=== PATIENT | female | born 1985 | race Caucasian/White ===

== ENCOUNTER 2017-09-26 03:00 | Emergency (ER) | payer OTHER ==
[~2017-09-26] VITALS: Ht 170.2 cm; Wt 135.2 kg
[~2017-09-26 03:00] MED LIST: AZITHROMYCIN 2250 MG PO; DEPO-PROVE150 MG/11 IM; FLAGYL500 MG PO; HYDROCODON-ACE1 EAC5; HYDROCODONE-AP1 EAC6 PO; IBUPROFEN 800800 M1 PO; LAMICTAL ODT100 MG PO; LEVAQUIN 500 M500 M2 PO; LEVOTHYROXIN0.025 MG PO; MACROBID 100 M100 M1 PO; NAPROSYN500 MG PO; NORCO 5-325 TA1 EAC1 PO; NORCO 5-325 TA1 EACH PO; PRINIVIL20 MG PO; TIZANIDINE HCL 22 MG; XANAX 0.5 MG0.5 MG PO; ZOFRAN ODT4 MG PO
[2017-09-26 03:28] LABS: URINE BLOOD NEGATIVE (Negative); URINE CLARITY CLEAR; URINE COLOR YELLOW; URINE GLUCOSE-RANDOM NEGATIVE (Negative); URINE KETONES TRACE (Negative); URINE LEUKOCYTES-REFLEX NEGATIVE (Negative); URINE NITRITE-REFLEX NEGATIVE (Negative); URINE PROTEIN 1+ (Negative); URINE SPECIFIC GRAVITY >= 1.030 (1.005-1.030); URINE UROBILINOGEN 0.2 E.U./dl (0.2-1.0)
[2017-09-26 03:30] LABS: URINE BILIRUBIN 1+ (Negative)
[2017-09-26 03:31] LABS: HEMATOCRIT 40.5 % (37.0-47.0); HEMOGLOBIN 13.5 gm/dL (12.0-15.0); MCH 27.9 pg (26.0-34.0); MCHC 33.4 g/dL (28.0-37.0); MCV 83.5 fL (80.0-100.0); NUCLEATED RBCS 0 /100WBC; PLATELET COUNT* 265 thou/uL (150-400); RBC 4.85 mil/uL (4.20-5.00); RDW-CV 14.5 % (10.5-14.5); WBC 12.2 thou/uL (4.0-11.0)
[2017-09-26 03:32] LABS: ICTOTEST (BILI CONFIRMATORY) Negative (Negative)
[2017-09-26 03:42] LABS: CALCIUM 8.5 mg/dL (8.5-10.1); CREATININE 0.8 mg/dL (0.6-1.3); POTASSIUM 3.4 mmol/L (3.5-5.1)
[2017-09-26 03:46] LABS: TOTAL BILIRUBIN 0.9 mg/dL (<0.1-1.0); TOTAL PROTEIN 6.7 g/dL (6.4-8.2)
[2017-09-26 04:10] LABS: ABSOLUTE EOSINOPHILS 0.2 thou/uL (0.0-0.7); ABSOLUTE LYMPHOCYTES 0.9 thou/uL (0.8-5.3); ABSOLUTE MONOCYTES 0.6 thou/uL (0.0-1.2); ABSOLUTE NEUTROPHILS 10.5 thou/uL (1.6-8.1); PLATELET ESTIMATE ADEQUATE
[2017-09-26 04:11] LABS: TOXIC GRANULATION 2+
[2017-09-26] MEDS ORDERED: ZOFRAN 4 MG ORAL4 MG PO (06:08)
[2017-09-26] MEDS ORDERED: NORCO 5-325 TA1 EACH PO (06:08)
[2017-09-26] MEDS ORDERED: CARAFATE 1 GM TA1 G1 PO (06:08)
[2017-09-26 06:13] VITALS: BP 108/55
== END 2017-09-26 06:14 | disposition home or self-care (01) ==
LOC: M.ERS 03:00
PROVIDERS: Emergency Medicine Emergency Medical Services
DX: R10.13 Epigastric pain (principal); R19.7 Diarrhea, unspecified; G43.909 Migraine, unspecified, not intractable, without status migrainosus; F17.210 Nicotine dependence, cigarettes, uncomplicated; Z88.6 Allergy status to analgesic agent; Z90.49 Acquired absence of other specified parts of digestive tract

== ENCOUNTER 2018-02-03 01:48 | Emergency (ER) | payer OTHER, MEDICAID ==
[~2018-02-03] VITALS: Ht 162.6 cm; Wt 81.7 kg
[~2018-02-03 01:48] MED LIST changes: +CARAFATE 1 GM TA1 G1 PO; +ZOFRAN 4 MG ORAL4 MG PO
[2018-02-03] MEDS ORDERED: UNICOMPLEX M TA1 TA1 (02:03)
[2018-02-03] MEDS ORDERED: TUMS (02:03)
[2018-02-03 02:31] LABS: URINE CLARITY TURBID; URINE COLOR RED
[2018-02-03 02:34] LABS: ICTOTEST (BILI CONFIRMATORY) Negative (Negative); URINE BILIRUBIN 1+ (Negative); URINE BLOOD 3+ (Negative); URINE GLUCOSE-RANDOM NEGATIVE (Negative); URINE KETONES NEGATIVE (Negative); URINE LEUKOCYTES-REFLEX NEGATIVE (Negative); URINE NITRITE-REFLEX NEGATIVE (Negative); URINE PROTEIN 2+ (Negative); URINE SPECIFIC GRAVITY >= 1.030 (1.005-1.030); URINE UROBILINOGEN 0.2 E.U./dl (0.2-1.0)
[2018-02-03 02:35] LABS: BACTERIA-REFLEX 1-9 Few /HPF (None Seen); CRYSTALS None Seen /LPF (None Seen); FINE GRANULAR CASTS 0-3 Few /LPF (None Seen); HYALINE CASTS 0-3 Few /LPF (None Seen); MUCUS 0-3 Light strn/LPF (None Seen); SQUAMOUS 0-3 Few /LPF (0-3); URINE RBC >20 Many /HPF (0-2); URINE WBC-REFLEX 6-15 Few /HPF (0-5)
[2018-02-03] MEDS ORDERED: BACTRIM DS TAB1 EACH PO (03:21)
[2018-02-03] MEDS ORDERED: NORCO 7.5-3251 EACH PO (03:21)
[2018-02-03] MEDS ORDERED: ZOFRAN ODT4 MG PO (03:21)
[2018-02-03 04:37] VITALS: BP 97/52
== END 2018-02-03 04:39 | disposition home or self-care (01) ==
LOC: M.ERS 01:48
PROVIDERS: Emergency Medicine
DX: N20.0 Calculus of kidney (principal); G43.909 Migraine, unspecified, not intractable, without status migrainosus; F17.210 Nicotine dependence, cigarettes, uncomplicated; Z88.5 Allergy status to narcotic agent; Z88.6 Allergy status to analgesic agent; Z90.49 Acquired absence of other specified parts of digestive tract; Z98.890 Other specified postprocedural states

== ENCOUNTER 2018-02-05 09:54 | Emergency (ER) | payer OTHER, MEDICAID ==
[~2018-02-05] VITALS: Ht 170.2 cm; Wt 100.7 kg
[~2018-02-05 09:54] MED LIST changes: +BACTRIM DS TAB1 EACH PO; +NORCO 7.5-3251 EACH PO; +TUMS; +UNICOMPLEX M TA1 TA1
[2018-02-05 10:17] LABS: URINE BLOOD 3+ (Negative); URINE CLARITY CLEAR; URINE COLOR YELLOW; URINE GLUCOSE-RANDOM NEGATIVE (Negative); URINE KETONES NEGATIVE (Negative); URINE LEUKOCYTES-REFLEX TRACE (Negative); URINE NITRITE-REFLEX NEGATIVE (Negative); URINE PROTEIN 1+ (Negative); URINE SPECIFIC GRAVITY >= 1.030 (1.005-1.030)
[2018-02-05 10:18] LABS: ICTOTEST (BILI CONFIRMATORY) Negative (Negative); URINE BILIRUBIN 1+ (Negative)
[2018-02-05 10:37] LABS: ABSOLUTE BASOPHILS 0.1 thou/uL (0.0-0.2); ABSOLUTE EOSINOPHILS 0.3 thou/uL (0.0-0.7); ABSOLUTE LYMPHOCYTES 1.5 thou/uL (0.8-5.3); ABSOLUTE MONOCYTES 0.5 thou/uL (0.0-1.2); ABSOLUTE NEUTROPHILS 4.6 thou/uL (1.6-8.1); BASOPHILS 0.8 %; EOSINOPHILS 4.3 %; HEMATOCRIT 41.6 % (37.0-47.0); HEMOGLOBIN 13.5 gm/dL (12.0-15.0); LYMPHOCYTES 21.4 %; MCH 27.9 pg (26.0-34.0); MCHC 32.5 g/dL (28.0-37.0); MCV 85.8 fL (80.0-100.0); MONOCYTES 7.5 %; MPV 10.9 fl. (7.2-11.1); NUCLEATED RBCS 0 /100WBC; PLATELET COUNT* 239 thou/uL (150-400); RBC 4.85 mil/uL (4.20-5.00); RDW-CV 15.5 % (10.5-14.5); WBC 6.9 thou/uL (4.0-11.0)
[2018-02-05 10:41] LABS: BACTERIA-REFLEX 1-9 Few /HPF (None Seen); CASTS None Seen /LPF (None Seen); CRYSTALS None Seen /LPF (None Seen); MUCUS 4-6 Moderate strn/LPF (None Seen); SQUAMOUS 4-10 Moderate /LPF (0-3); URINE WBC-REFLEX 0-5 Rare /HPF (0-5)
[2018-02-05 10:46] LABS: CALCIUM 8.6 mg/dL (8.5-10.1); CREATININE 0.7 mg/dL (0.6-1.3); POTASSIUM 3.8 mmol/L (3.5-5.1)
[2018-02-05 10:50] LABS: TOTAL BILIRUBIN 0.3 mg/dL (<0.1-1.0); TOTAL PROTEIN 6.1 g/dL (6.4-8.2)
[2018-02-05] MEDS ORDERED: ROBAXIN500 MG PO (11:41)
[2018-02-05] MEDS ORDERED: FLOMAX0.4 MG PO (11:42)
[2018-02-05 11:55] VITALS: BP 92/57
== END 2018-02-05 11:58 | disposition home or self-care (01) ==
LOC: M.ERS 09:54
PROVIDERS: Nurse Practitioner Family
DX: N20.0 Calculus of kidney (principal); G43.909 Migraine, unspecified, not intractable, without status migrainosus; Z90.49 Acquired absence of other specified parts of digestive tract; Z98.890 Other specified postprocedural states; F17.210 Nicotine dependence, cigarettes, uncomplicated; Z88.5 Allergy status to narcotic agent; Z88.8 Allergy status to other drugs, medicaments and biological substances

== ENCOUNTER 2019-01-30 12:25 | Emergency (ER) | payer OTHER, MEDICAID ==
[~2019-01-30] VITALS: Ht 170.1 cm; Wt 71.2 kg
[~2019-01-30 12:25] MED LIST changes: +FLOMAX0.4 MG PO; +ROBAXIN500 MG PO
[2019-01-30 12:44] LABS: URINE BILIRUBIN NEGATIVE (Negative); URINE BLOOD NEGATIVE (Negative); URINE CLARITY CLEAR; URINE COLOR YELLOW; URINE GLUCOSE-RANDOM NEGATIVE (Negative); URINE KETONES NEGATIVE (Negative); URINE LEUKOCYTES-REFLEX NEGATIVE (Negative); URINE NITRITE-REFLEX NEGATIVE (Negative); URINE PROTEIN NEGATIVE (Negative); URINE UROBILINOGEN 0.2 E.U./dl (0.2-1.0)
[2019-01-30 13:00] LABS: ABSOLUTE BASOPHILS 0.1 thou/uL (0.0-0.2); ABSOLUTE EOSINOPHILS 0.1 thou/uL (0.0-0.7); ABSOLUTE LYMPHOCYTES 1.8 thou/uL (0.8-5.3); ABSOLUTE MONOCYTES 0.5 thou/uL (0.0-1.2); ABSOLUTE NEUTROPHILS 5.5 thou/uL (1.6-8.1); BASOPHILS 0.6 %; EOSINOPHILS 1.7 %; HEMATOCRIT 38.7 % (37.0-47.0); HEMOGLOBIN 12.7 gm/dL (12.0-15.0); LYMPHOCYTES 22.5 %; MCH 27.7 pg (26.0-34.0); MCHC 32.8 g/dL (28.0-37.0); MCV 84.4 fL (80.0-100.0); MONOCYTES 6.7 %; MPV 9.7 fl. (7.2-11.1); NUCLEATED RBCS 0 /100WBC; PLATELET COUNT* 270 thou/uL (150-400); POLYS 68.5 %; RBC 4.59 mil/uL (4.20-5.00); RDW-CV 12.8 % (10.5-14.5)
[2019-01-30 13:48] LABS: CALCIUM 8.5 mg/dL (8.5-10.1); CREATININE 0.6 mg/dL (0.6-1.3); POTASSIUM 3.8 mmol/L (3.5-5.1)
[2019-01-30 13:53] LABS: ALBUMIN 3.2 g/dL (3.4-5.0); TOTAL BILIRUBIN 0.3 mg/dL (<0.1-1.0); TOTAL PROTEIN 6.4 g/dL (6.4-8.2)
[2019-01-30] MEDS ORDERED: BENTYL 20 MG TA20 M1 PO (14:07)
[2019-01-30] MEDS ORDERED: ZOFRAN ODT4 MG DISSOLVE (14:07)
[2019-01-30 14:18] VITALS: BP 112/72
== END 2019-01-30 14:19 | disposition home or self-care (01) ==
LOC: M.ERS 12:25
PROVIDERS: Emergency Medicine Emergency Medical Services
DX: K52.9 Noninfective gastroenteritis and colitis, unspecified (principal); G43.909 Migraine, unspecified, not intractable, without status migrainosus; F17.210 Nicotine dependence, cigarettes, uncomplicated; Z88.5 Allergy status to narcotic agent; Z88.6 Allergy status to analgesic agent; Z90.49 Acquired absence of other specified parts of digestive tract; Z98.890 Other specified postprocedural states

== ENCOUNTER 2019-03-06 21:16 | Emergency (ER) | payer OTHER, MEDICAID ==
[~2019-03-06] VITALS: Ht 167.6 cm; Wt 71.7 kg
[~2019-03-06 21:16] MED LIST changes: +BENTYL 20 MG TA20 M1 PO; +ZOFRAN ODT4 MG DISSOLVE
[2019-03-06] MEDS ORDERED: HAIR SKIN NAIL1 EACH PO (21:29)
[2019-03-06] MEDS ORDERED: LEXAPRO 10 MG T10 M2 PO (21:30)
[2019-03-06] MEDS ORDERED: XANAX 0.25 MG0.25 MG PO (21:30)
[2019-03-06 22:23] LABS: ABSOLUTE BASOPHILS 0.1 thou/uL (0.0-0.2); ABSOLUTE EOSINOPHILS 0.3 thou/uL (0.0-0.7); ABSOLUTE LYMPHOCYTES 2.2 thou/uL (0.8-5.3); ABSOLUTE MONOCYTES 0.7 thou/uL (0.0-1.2); ABSOLUTE NEUTROPHILS 5.7 thou/uL (1.6-8.1); HEMATOCRIT 31.7 % (37.0-47.0); HEMOGLOBIN 10.5 gm/dL (12.0-15.0); LYMPHOCYTES 24.6 %; MCHC 33.3 g/dL (28.0-37.0); MPV 9.3 fl. (7.2-11.1); NUCLEATED RBCS 0 /100WBC; PLATELET COUNT* 248 thou/uL (150-400); POLYS 63.4 %; RBC 3.91 mil/uL (4.20-5.00); RDW-CV 13.2 % (10.5-14.5)
[2019-03-06 22:24] LABS: URINE BILIRUBIN NEGATIVE (Negative); URINE BLOOD 3+ (Negative); URINE CLARITY CLEAR; URINE COLOR YELLOW; URINE GLUCOSE-RANDOM NEGATIVE (Negative); URINE KETONES NEGATIVE (Negative); URINE LEUKOCYTES-REFLEX NEGATIVE (Negative); URINE NITRITE-REFLEX NEGATIVE (Negative); URINE PROTEIN NEGATIVE (Negative); URINE SPECIFIC GRAVITY 1.025 (1.005-1.030); URINE UROBILINOGEN 0.2 E.U./dl (0.2-1.0)
[2019-03-06 22:28] LABS: CALCIUM 7.9 mg/dL (8.5-10.1); CREATININE 0.7 mg/dL (0.6-1.3); POTASSIUM 3.6 mmol/L (3.5-5.1)
[2019-03-06 22:32] LABS: ALBUMIN 2.8 g/dL (3.4-5.0); TOTAL BILIRUBIN 0.1 mg/dL (<0.1-1.0); TOTAL PROTEIN 5.7 g/dL (6.4-8.2)
[2019-03-06 22:34] LABS: CASTS None Seen /LPF (None Seen); CRYSTALS None Seen /LPF (None Seen); MUCUS >6 Heavy strn/LPF (None Seen); SQUAMOUS 0-3 Few /LPF (0-3); URINE WBC-REFLEX None Seen /HPF (0-5)
[2019-03-07] MEDS ORDERED: ZOFRAN ODT4 MG DISSOLVE (00:03)
[2019-03-07] MEDS ORDERED: TRAMADOL 50 MG50 MG PO (00:03)
[2019-03-07 00:14] VITALS: BP 105/66
--- NOTE | 2019-03-08 08:40 | EKG ---
[place] [address] ELECTROCARDIOGRAM REPORT Name: ROSEY SANDERS Room: [facility]#: [id number] Admission: 03/06/19 Attend Phys: Discharge: 03/07/19 Date of : 83 Report #: [id number] THIS REPORT FOR: //name// [facility] ED Test Date: 2019-03-06 Test Time: 22:19:58 Pat Name: ROSEY SANDERS Department: Room: Gender: F [employer] Candy Maker: ANUEL : 1985 Requested By: Poncho Simmons Order Number: [id number] MD: Murali Dewitt Measurements Intervals [place] Rate: 64 P: 33 LA: 161 QRS: 32 QRSD: 84 T: 27 QT: 427 QTc: 441 Interpretive Statements Sinus rhythm Low voltage, precordial leads Compared to ECG 05/31/2014 22:05:41 Low QRS voltage now present Sinus tachycardia no longer present Electronically Signed On 03-08-2019 8:40:13 FOOT SETTER by Murali Dewitt [email or web address] <ELECTRONICALLY SIGNED> By: Murali Dewitt MD, [facility] 03/08/19 0840 18 18 Murali Dewitt MD, FACC /EPI
== END 2019-03-07 00:14 | disposition home or self-care (01) ==
LOC: M.ERS 21:16
PROVIDERS: Emergency Medicine Emergency Medical Services
DX: R10.10 Upper abdominal pain, unspecified (principal); R19.7 Diarrhea, unspecified; G43.909 Migraine, unspecified, not intractable, without status migrainosus; F17.210 Nicotine dependence, cigarettes, uncomplicated; Z88.8 Allergy status to other drugs, medicaments and biological substances; Z90.49 Acquired absence of other specified parts of digestive tract

== ENCOUNTER 2019-06-21 21:05 | Emergency (ER) | payer OTHER, MEDICAID ==
[~2019-06-21] VITALS: Ht 170.2 cm; Wt 70.3 kg
[~2019-06-21 21:05] MED LIST changes: +HAIR SKIN NAIL1 EACH PO; +LEXAPRO 10 MG T10 M2 PO; +TRAMADOL 50 MG50 MG PO; +XANAX 0.25 MG0.25 MG PO
[2019-06-21 21:26] LABS: URINE BILIRUBIN NEGATIVE (Negative); URINE BLOOD NEGATIVE (Negative); URINE CLARITY CLEAR; URINE COLOR YELLOW; URINE GLUCOSE-RANDOM NEGATIVE (Negative); URINE KETONES NEGATIVE (Negative); URINE LEUKOCYTES-REFLEX NEGATIVE (Negative); URINE NITRITE-REFLEX NEGATIVE (Negative); URINE PROTEIN NEGATIVE (Negative); URINE SPECIFIC GRAVITY 1.025 (1.005-1.030); URINE UROBILINOGEN 0.2 E.U./dl (0.2-1.0)
[2019-06-22] MEDS ORDERED: HYDROCODON-ACE1 EAC8 PO (00:11)
[2019-06-22 00:18] VITALS: BP 106/52
== END 2019-06-22 00:19 | disposition home or self-care (01) ==
LOC: M.ERS 21:05
PROVIDERS: Nurse Practitioner Family
DX: N83.202 Unspecified ovarian cyst, left side (principal); F17.210 Nicotine dependence, cigarettes, uncomplicated; Z88.5 Allergy status to narcotic agent; Z88.8 Allergy status to other drugs, medicaments and biological substances; Z90.49 Acquired absence of other specified parts of digestive tract; Z98.890 Other specified postprocedural states; Z87.442 Personal history of urinary calculi

== ENCOUNTER 2020-03-04 19:15 | Emergency (ER) | payer OTHER ==
[~2020-03-04] VITALS: Ht 167.6 cm; Wt 72.6 kg
[~2020-03-04 19:15] MED LIST changes: +HYDROCODON-ACE1 EAC8 PO
[2020-03-04] MEDS ORDERED: BACTRIM DS TAB1 EAC1 PO ×2 (19:36→19:37)
[2020-03-04] MEDS ORDERED: APAP W/CODEINE1 TA2 PO ×2 (19:36→19:37)
[2020-03-04 20:30] VITALS: BP 147/99
== END 2020-03-04 20:31 | disposition home or self-care (01) ==
LOC: M.ERS 19:15
DX: L02.31 Cutaneous abscess of buttock (principal); K31.84 Gastroparesis; F17.210 Nicotine dependence, cigarettes, uncomplicated; Z90.49 Acquired absence of other specified parts of digestive tract; Z98.890 Other specified postprocedural states; Z88.5 Allergy status to narcotic agent; Z88.8 Allergy status to other drugs, medicaments and biological substances

== ENCOUNTER 2020-04-23 19:10 | Inpatient (IN) | payer OTHER, MEDICAID ==
[~2020-04-23] VITALS: Ht 170.2 cm; Wt 79.8 kg
--- NOTE | ~2020-04-23 | PROC ---
[address] [address] PROCEDURE REPORT Name: ROSEY SANDERS Room: [address] [place] M.R.#: [id number] Admission: 04/23/20 Attend Phys: David Tena MD Discharge: 04/28/20 Date of : 83 Report #: [id number] THIS REPORT FOR: cc: Ariane Jaimes MD, Elizabeth MD ~ [facility],Medical Records Staff For GI report, please see the Provation report in Perceptive 7 content. By: [id number] Records Staff [facility] /[place]
[~2020-04-23 19:10] MED LIST changes: +APAP W/CODEINE1 TA2 PO; +BACTRIM DS TAB1 EAC1 PO
[2020-04-23 19:22] VITALS: BP 131/75
[2020-04-23] MEDS ORDERED: VENLAFAXINE HC100 MG PO (19:25)
[2020-04-23 19:35] LABS: URINE BILIRUBIN NEGATIVE (Negative); URINE BLOOD NEGATIVE (Negative); URINE CLARITY CLEAR; URINE COLOR YELLOW; URINE GLUCOSE-RANDOM NEGATIVE (Negative); URINE KETONES NEGATIVE (Negative); URINE LEUKOCYTES-REFLEX NEGATIVE (Negative); URINE NITRITE-REFLEX NEGATIVE (Negative); URINE PROTEIN NEGATIVE (Negative); URINE SPECIFIC GRAVITY >= 1.030 (1.005-1.030); URINE UROBILINOGEN 0.2 E.U./dl (0.2-1.0)
[2020-04-23 19:40] LABS: ABSOLUTE LYMPHOCYTES 2.1 thou/uL (0.8-5.3); ABSOLUTE MONOCYTES 0.6 thou/uL (0.0-1.2); ABSOLUTE NEUTROPHILS 5.2 thou/uL (1.6-8.1); BASOPHILS 0.6 %; LYMPHOCYTES 26.6 %; MCH 23.7 pg (26.0-34.0); MCHC 31.3 g/dL (28.0-37.0); MCV 75.9 fL (80.0-100.0); MONOCYTES 7.3 %; MPV 9.1 fl. (7.2-11.1); NUCLEATED RBCS 0 /100WBC; PLATELET COUNT* 289 thou/uL (150-400); POLYS 65.5 %; RBC 4.62 mil/uL (4.20-5.00); RDW-CV 15.5 % (10.5-14.5); WBC 7.9 thou/uL (4.0-11.0)
[2020-04-23 19:50] LABS: ANION GAP 7 mmol/L (7-16); BUN 12 mg/dL (7-18); CALCIUM 7.7 mg/dL (8.5-10.1); CHLORIDE 110 mmol/L (98-107); CO2 27 mmol/L (21-32); CREATININE 0.6 mg/dL (0.6-1.3); GLUCOSE 66 mg/dL (70-99); POTASSIUM 3.8 mmol/L (3.5-5.1); SODIUM 144 mmol/L (136-145)
[2020-04-23 19:54] LABS: ALBUMIN 3.3 g/dL (3.4-5.0); ALKALINE PHOSPHATASE 161 U/L (46-116); LIPASE 809 U/L (73-393); SGOT 24 U/L (15-37); SGPT 29 U/L (30-65); TOTAL PROTEIN 6.4 g/dL (6.4-8.2)
[2020-04-23 19:56] LABS: TOTAL BILIRUBIN < 0.1 mg/dL (<0.1-1.0)
[2020-04-23 22:13] VITALS: BP 120/70
[2020-04-23] MEDS ORDERED: SEROQUEL 100 M100 M1 PO (23:38)
[2020-04-24 08:00] VITALS: BP 127/74
--- NOTE | 2020-04-24 15:53 | NUR ---
PT.IN ISOLATION FOR POTENTIAL C.DIFF. RESULTS PENDING. ATTEMPTED TO CALL PT.IN ROOM. NO ANSWER. ATTEMPTED TO CALL PT.ON HER CELL NUMBER LISTED [phone]. NO VOICE MAIL SET UP . PHONE RANG AND RANG. WILL ATTEMPT IN AM.
[2020-04-24 16:38] VITALS: BP 117/78
--- NOTE | 2020-04-24 17:31 | NUR ---
PATIENT ALERT AND ORIENTED X 4. VITAL SIGNS STABLE ON ROOM AIR. UP INDEPENDENTLY IN ROOM. IV PATENT WITH FLUIDS INFUSING. PAIN AND NAUSEA BEING MANAGED WITH IV MEDICATION. HOURLY ROUNDS MAINTAINED TRHOUGHOUT THE SHIFT. CALL LIGHT WITHIN REACH. NURSING WILL CONTINUE TO MONITOR.
[2020-04-24 19:37] VITALS: BP 122/85
--- NOTE | 2020-04-25 04:22 | NUR ---
PT A&OX4, VSS ON [place] AIR, PT UP AD CIPRIANO, IV FLUIDS INFUSING ORDERED. AT [address] DR[address] SHINE CONTACTED D/T PT C/O NOT ABLE TO SLEEP AND NOT ABLE TO TAKE PO SEROQUEL, ORDER GIVEN FOR ATIVAN 0.5 MG IV ONETIME. PAIN AND ANTIEMETIC MEDS REQUESTED AND GIVEN ODERED. WILL CONTINUE TO MONITOR.
[2020-04-25 05:06] LABS: HEMATOCRIT 28.8 % (37.0-47.0); MCH 23.6 pg (26.0-34.0); MCHC 31.1 g/dL (28.0-37.0); MCV 75.7 fL (80.0-100.0); MPV 9.1 fl. (7.2-11.1); RBC 3.8 mil/uL (4.20-5.00); RDW-CV 16.2 % (10.5-14.5); WBC 4.4 thou/uL (4.0-11.0)
[2020-04-25 05:46] LABS: ALBUMIN 2.5 g/dL (3.4-5.0); CALCIUM 7.1 mg/dL (8.5-10.1); CREATININE 0.6 mg/dL (0.6-1.3); MAGNESIUM 1.6 mg/dL (1.8-2.4); POTASSIUM 3.8 mmol/L (3.5-5.1); TOTAL BILIRUBIN 0.2 mg/dL (<0.1-1.0); TOTAL PROTEIN 5.1 g/dL (6.4-8.2)
[2020-04-25 07:45] VITALS: BP 107/74
--- NOTE | 2020-04-25 10:30 | NUR ---
PT TAKEN VIA WHEELCHAIR FOR ERCP AND US. PT VERY ANXIOUS VERBAL ORDER OK TO GIVE PO XANAX PRIOR TO PROCEDURE FOR CLAUSTROPHOBIA. PT GIVEN ZOFRAN AND PAIN MED DUE TO INCREASED NAUSEA AND PAIN BEFORE PROCEDURE.
--- NOTE | 2020-04-25 15:00 | NUR ---
PT.ALERT AND ORIENTED. STATED SHE LIVES WITH HE BOYFRIEND AND CHILDREN. IS NORMALLY INDEPENDENT. IS UNEMPLOYED. SHE DOESN'T THINK SHE WILL HAVE ANY NEEDS AT DISCHARGE. HAD MRCP AND US OF ABD TODAY FOR ELEVATED LFTS.
[2020-04-25 16:00] VITALS: BP 118/82
[2020-04-25 20:27] VITALS: BP 103/65
[2020-04-26 02:07] LABS: HEPATITIS B SURFACE AG Negative (Negative)
[2020-04-26 04:40] VITALS: BP 108/67
--- NOTE | 2020-04-26 05:36 | NUR ---
PT HAD SOME ANXIETY ABOUT FALLING ASLEEP, GIVEN BENADRYL. RECEIVED DILAUDID Q2 AND SOFRAN Q4 WHEN REQUESTED. RECEIVED ALL FLUIDS AND MEDS SCHEDULED. TOLERATING CLEAR LIQUIDS WELL. UP AD CIPRIANO FOR RESTROOM. ALERT AND ORIENTED, ROOM AIR. MONITORING LABS THIS AM.
[2020-04-26 05:47] LABS: HEMATOCRIT 29.1 % (37.0-47.0); MCH 23.5 pg (26.0-34.0); MCHC 31.1 g/dL (28.0-37.0); MCV 75.7 fL (80.0-100.0); MPV 9.1 fl. (7.2-11.1); RBC 3.84 mil/uL (4.20-5.00); RDW-CV 15.8 % (10.5-14.5); WBC 4.1 thou/uL (4.0-11.0)
[2020-04-26 05:59] LABS: INR 1.1; PROTIME 11.8 Seconds (9.20-11.50)
[2020-04-26 06:01] LABS: ALBUMIN 2.5 g/dL (3.4-5.0); CALCIUM 7.2 mg/dL (8.5-10.1); CREATININE 0.6 mg/dL (0.6-1.3); POTASSIUM 3.4 mmol/L (3.5-5.1); TOTAL BILIRUBIN 0.1 mg/dL (<0.1-1.0)
[2020-04-26 06:29] LABS: % SATURATION 4 % (20-39)
[2020-04-26 06:30] LABS: IRON 13 ug/dL (50-175)
--- NOTE | 2020-04-26 12:00 | NUR ---
DISCUSSED IN PRIME TIME ROUNDING. PT.HAVING POOR PO TOLERANCE. ON FULL LIQUIDS PLAN EGD TOMORROW.
[2020-04-26 16:00] VITALS: BP 99/64
--- NOTE | 2020-04-26 17:56 | NUR ---
PT IS A+0X4. PT VOICES CONCERN ABOUT PAIN LEVEL AND CONTROLLING PAIN. PT ADVANCED TO FULL LIQUID DIET AND IS TOLERATING WITH COMPLAINTS OF NAUSEA WITH NO VOMITING. ZOFRAN GIVEN. PT UP AD CIPRIANO. PT IS NPO AFTER MIDNIGHT FOR EGD IN THE MORNING.
--- NOTE | 2020-04-26 18:53 | NUR ---
I HAVE REVIEWED AND AGREE WITH [facility].
[2020-04-26 20:46] VITALS: BP 121/83
--- NOTE | 2020-04-27 04:26 | NUR ---
PT IS UP AD CIPRIANO TO RESTROOM. SHE IS ON ROOM AIR, ALERT AND ORIENTED. SHE RECEIVED HYDROCODONE, DILAUDID, ZOFRAN EVERY 4 HOURS PRN FOR PAIN RATED 7/10 EACH TIME. TOLERATING FULL LIQUID DIET, STILL NO BM. NPO SINCE MIDNIGHT. PAIN STILL AN ISSUE, NO REPORTS OF VOMITING BUT HAS NAUSEA.
[2020-04-27 04:45] LABS: HEMATOCRIT 31.1 % (37.0-47.0); HEMOGLOBIN 9.8 gm/dL (12.0-15.0); MCH 23.8 pg (26.0-34.0); MCHC 31.6 g/dL (28.0-37.0); MCV 75.5 fL (80.0-100.0); MPV 9.4 fl. (7.2-11.1); RBC 4.12 mil/uL (4.20-5.00); RDW-CV 15.7 % (10.5-14.5); WBC 4.5 thou/uL (4.0-11.0)
[2020-04-27 05:01] LABS: ALBUMIN 2.6 g/dL (3.4-5.0); CALCIUM 8.3 mg/dL (8.5-10.1); CREATININE 0.7 mg/dL (0.6-1.3); MAGNESIUM 1.9 mg/dL (1.8-2.4); POTASSIUM 3.9 mmol/L (3.5-5.1); TOTAL BILIRUBIN 0.1 mg/dL (<0.1-1.0); TOTAL PROTEIN 5.4 g/dL (6.4-8.2)
[2020-04-27 08:00] VITALS: BP 111/67
[2020-04-27 09:57] VITALS: BP 121/83
--- NOTE | 2020-04-27 15:00 | NUR ---
HAD EGD TODAY. KEPT ON FULL LIQUIDS DUE TO NAUSEA WITH ANY PO INTAKE. POSSIBLE DISCHARGE TOMORROW IF ABLE TO ADVANCE DIET.
[2020-04-27 15:20] VITALS: BP 121/77
--- NOTE | 2020-04-27 18:13 | NUR ---
PT A+OX4. PT HAD AN EGD TODAY. SHE COMPLAINS OF LUQ PAIN AND REQUESTS PAIN MEDS AND ANTINAUSEA MEDS. PT NOT TOLERATING SOLID FOOD WELL. PT TOLERATES THIN LIQUIDS. PT HAS NOT HAD A BM TODAY. PT IS RESTING IN BED WITH NO REQUESTS. CALL LIGHT WITHIN REACH.
--- NOTE | 2020-04-27 18:46 | NUR ---
I HAVE REVIEWED AND AGREE WITH [facility].
[2020-04-27 20:00] VITALS: BP 112/72
[2020-04-28 04:20] LABS: HEMATOCRIT 31.7 % (37.0-47.0); HEMOGLOBIN 10.1 gm/dL (12.0-15.0); MCH 23.9 pg (26.0-34.0); MCHC 31.7 g/dL (28.0-37.0); MCV 75.2 fL (80.0-100.0); MPV 9.1 fl. (7.2-11.1); RBC 4.21 mil/uL (4.20-5.00); RDW-CV 16.1 % (10.5-14.5); WBC 4.8 thou/uL (4.0-11.0)
[2020-04-28 04:57] LABS: ALBUMIN 2.6 g/dL (3.4-5.0); CALCIUM 8.4 mg/dL (8.5-10.1); CREATININE 0.7 mg/dL (0.6-1.3); MAGNESIUM 1.9 mg/dL (1.8-2.4); POTASSIUM 3.7 mmol/L (3.5-5.1); TOTAL BILIRUBIN 0.2 mg/dL (<0.1-1.0); TOTAL PROTEIN 5.4 g/dL (6.4-8.2)
--- NOTE | 2020-04-28 05:43 | NUR ---
ASSUMED PT'S CARE THIS OM SHIFT. ALERT AND ORIENTED. VSS ON RA. UP AD CIPRIANO. MEDS PER EMAR. PRN PAIN MEDS GIVEN THIS SHIFT. ZOFRAN ALSO GIVEN FOR NAUSEA. NO VOMITTING THIS SHIFT. PT SLEPT WELL THIS SHIFT. ANTICIPATING DC TO HOME TODAY. K+ REDRAW NOW AT 3.7. WILL CONTINUE TO MONITOR.
[2020-04-28 07:31] VITALS: BP 111/79
[2020-04-28 09:45] VITALS: BP 111/79
[2020-04-28] MEDS ORDERED: HYDROCODON-ACE1 EAC7 PO (10:52)
[2020-04-28] MEDS ORDERED: SUPER ENZYME C1 EACH PO (10:52)
[2020-04-28 11:10] VITALS: BP 111/79
[2020-04-28 13:29] VITALS: BP 111/79
--- NOTE | 2020-04-28 13:30 | NUR ---
PT GIVEN DISCHARGE ORDERS. IV REMOVED. PT BELONGINGS GATHERED. PT LEFT WITH PRESCRIPTIONS, COPY OF COVID NEGATIVE RESULT, AND WORK EXCUSE NOTE. PT LEFT VIA WHEELCHAIR WITH NURSING STAFF TO HOME. HOURLY ROUNDING COMPLETED.
== END 2020-04-28 13:31 | disposition home or self-care (01) | DRG 439 ==
LOC: M.ERS 19:10 → M.3W 21:28 → M.TBA-ER 21:28 → M.3W 22:18
PROVIDERS: Internal Medicine; Internal Medicine Gastroenterology; Physician Assistant; ADMIT Internal Medicine; ATTEND Internal Medicine
PROC: 0DJD8ZZ Inspection of Lower Intestinal Tract, Via Natural or Artificial Opening Endoscopic (ICD-10-PCS; principal; 2020-04-27)
DX: K85.90 Acute pancreatitis without necrosis or infection, unspecified (principal); E44.1 Mild protein-calorie malnutrition; E16.2 Hypoglycemia, unspecified; F41.9 Anxiety disorder, unspecified; E83.51 Hypocalcemia; K31.84 Gastroparesis; R19.7 Diarrhea, unspecified; Z20.822 Contact with and (suspected) exposure to COVID-19; Z90.49 Acquired absence of other specified parts of digestive tract; Z98.84 Bariatric surgery status; Z98.891 History of uterine scar from previous surgery; Z88.5 Allergy status to narcotic agent; Z88.8 Allergy status to other drugs, medicaments and biological substances; Z68.27 Body mass index [BMI] 27.0-27.9, adult

== ENCOUNTER 2020-10-09 22:36 | Emergency (ER) | payer OTHER, MEDICAID ==
[~2020-10-09] VITALS: Ht 167.6 cm; Wt 71.2 kg
[~2020-10-09 22:36] MED LIST changes: +HYDROCODON-ACE1 EAC7 PO; +SEROQUEL 100 M100 M1 PO; +SUPER ENZYME C1 EACH PO; +VENLAFAXINE HC100 MG PO
[2020-10-10 00:19] LABS: URINE BILIRUBIN NEGATIVE (Negative); URINE BLOOD NEGATIVE (Negative); URINE CLARITY CLEAR; URINE COLOR YELLOW; URINE GLUCOSE-RANDOM NEGATIVE (Negative); URINE KETONES NEGATIVE (Negative); URINE LEUKOCYTES-REFLEX NEGATIVE (Negative); URINE NITRITE-REFLEX NEGATIVE (Negative); URINE PROTEIN NEGATIVE (Negative); URINE SPECIFIC GRAVITY 1.025 (1.005-1.030); URINE UROBILINOGEN 0.2 E.U./dl (0.2-1.0)
[2020-10-10 00:23] LABS: HEMATOCRIT 40.5 % (37.0-47.0); HEMOGLOBIN 13.9 gm/dL (12.0-15.0); MCH 30.8 pg (26.0-34.0); MCHC 34.2 g/dL (28.0-37.0); MCV 90.1 fL (80.0-100.0); MPV 8.9 fl. (7.2-11.1); NUCLEATED RBCS 0 /100WBC; PLATELET COUNT* 245 thou/uL (150-400); RDW-CV 13.6 % (10.5-14.5); WBC 10.4 thou/uL (4.0-11.0)
[2020-10-10 00:25] LABS: CREATININE 0.6 mg/dL (0.6-1.3); POTASSIUM 4.5 mmol/L (3.5-5.1)
[2020-10-10 00:29] LABS: ALBUMIN 3.2 g/dL (3.4-5.0); TOTAL BILIRUBIN 0.4 mg/dL (<0.1-1.0); TOTAL PROTEIN 6.3 g/dL (6.4-8.2)
[2020-10-10 01:46] LABS: ABSOLUTE EOSINOPHILS 0.1 thou/uL (0.0-0.7); ABSOLUTE LYMPHOCYTES 0.9 thou/uL (0.8-5.3); ABSOLUTE MONOCYTES 0.8 thou/uL (0.0-1.2); ABSOLUTE NEUTROPHILS 8.5 thou/uL (1.6-8.1); PLATELET ESTIMATE ADEQUATE
[2020-10-10] MEDS ORDERED: TRAMADOL 50 MG50 MG PO (03:06)
[2020-10-10] MEDS ORDERED: DICYCLOMINE HCL20 MG PO (03:06)
[2020-10-10 03:20] VITALS: BP 105/63
== END 2020-10-10 03:20 | disposition home or self-care (01) ==
LOC: M.ERS 22:36
PROVIDERS: Personal Emergency Response Attendant
DX: R10.812 Left upper quadrant abdominal tenderness (principal); R11.0 Nausea; R19.7 Diarrhea, unspecified; R51.9 Headache, unspecified; F17.210 Nicotine dependence, cigarettes, uncomplicated; Z98.890 Other specified postprocedural states; Z90.49 Acquired absence of other specified parts of digestive tract; Z90.89 Acquired absence of other organs; Z88.5 Allergy status to narcotic agent; Z88.6 Allergy status to analgesic agent